=== PATIENT | male | born 1985 | race Caucasian/White ===

== ENCOUNTER 2023-11-25 20:01 | Emergency (ER) | payer SELFPAY ==
[2023-11-25 20:03] VITALS: BP 162/92
--- NOTE | 2023-11-25 21:01 | ED.GENMED ---
History of Present Illness
General
Chief Complaint: Abdominal Pain
Source: patient
Exam Limitations: none
Time Seen by Provider: 11/25/23 20:30
Nursing documentation reviewed up to this point in time: agreed with
Travel History
Have you had any contact with someone who has COVID-19?: No
Do you have any symptoms of coronavirus? Fever > 100 degrees, chills, cough, shortness of breath, sore throat, loss of taste or smell, muscle aches, or headache?: No
History of Present Illness
History of Present Illness:
This a pleasant 37-year-old male that presents with left-sided back pain that wraps around to his abdomen. He states that it occurred late last night/early this morning. He states that he awakened in the middle of the night and cooked himself a
'greasy cheese steak '. He states that he has been having pain that radiates from his back around to the front on the left side of his abdomen. He denies fever or chills. He states that he felt better after he 'forced himself to vomit '. He
states that he still has the pain that is intermittent in nature. He denies any urinary symptoms. Reports no fever or chills. Denies chest pain or shortness of breath. At time of exam, patient was symptom-free.
Review of Systems
Review of Systems
Allergies reviewed?: Yes
All Other Systems: ROS reviewed and negative except as documented in HPI and ROS
Constitutional: Reports sleep disturbance
EENT: Reports no symptoms
Respiratory: Reports no symptoms
Cardiac: Reports no symptoms
ABD/GI: Reports abdominal pain and vomiting; Denies nausea, diarrhea, constipated or bloody stools
: Reports no symptoms
Musculoskeletal: Reports no symptoms
Skin: Reports no symptoms
Neurological: Reports no symptoms
Endocrine: Reports no symptoms
Hematologic/Lymphatic: Reports no symptoms
Psychiatric: Reports anxiety
Phy Exam
General Physical Exam
General Presentation: well appearing and no apparent distress
General Skin: warm and dry
General Habitus: normal
General Mental: alert
General Hydration: appears well hydrated
ENT Exam
ENT Exam: EOMI, pharynx normal, neck supple and normocephalic
Eye Exam
Eye Exam: PERRL, cornea clear and conjunctiva normal
Cardiovascular Exam
Cardiovascular Exam: regular rate/rhythm, no edema, no murmur and normal peripheral pulses
Pulmonary Exam
Pulmonary Exam: lungs clear, no respiratory distress, no rales, no crackles, no rhonchi, no stridor, no wheezing and no cough
Gastrointestinal Exam
Gastrointestinal Exam: normal bowel sounds, non tender, soft, no organomegaly, no pulsatile mass and non distended
Neurological Exam
Neurological Exam: alert, oriented x3, no motor deficits and speech normal
Musculoskeletal Exam
Musculoskeletal Exam: full ROM and no edema
Skin Exam
Skin Exam: normal color, warm/dry, no rash and no petechia
Psychiatric Exam
Psychiatric Exam: normal mood/affect
Course
Orders/Labs/Results
Orders:
Orders
11/25/23 20:43
0.9% Sodium Chloride 1000 ml [Nss] 1,000 ml IV BOLUS
11/25/23 21:21
Complete Blood Count/With Diff Urgent
Comprehensive Metabolic Panel Urgent
Lipase Urgent
11/25/23 21:31
CT Abd/pel Without Iv Or Oral Urgent
Comment:
Reason For Exam: l flank pain
11/25/23 23:06
Urinalysis Reflex To Culture Urgent
Date Specimen was Collected: 11/25/23
Time Specimen was Collected: 22:38
Abnormal Lab Results
11/25/23
21:21
MCH 31.4 H pg
(27.0-31.0)
Glucose 133 H mg/dl
(70-99)
11/25/23 21:21
11/25/23 21:21
Vital Signs
Initial and Last Documented VS:
Initial Vital Signs
Temp Pulse Resp BP Pulse Ox
98.3 F 80 16 162/92 98
11/25/23 20:03 11/25/23 20:03 11/25/23 20:03 11/25/23 20:03 11/25/23 20:03
Last Documented Vital Signs
Temp Pulse Resp BP Pulse Ox
98.3 F 74 16 134/70 98
11/25/23 20:03 11/26/23 00:12 11/26/23 00:12 11/26/23 00:12 11/26/23 00:12
MDM/Problems Addressed
Differential Diagnosis Includes:
Abdominal pain, kidney stone, flank pain, musculoskeletal abdominal pain, pancreatitis
MDM/Problems Addressed:
37-year-old male with left-sided abdominal pain after eating a cheese steak
Chronic conditions affecting care:
None, this is an acute problem
*Radiology
Radiology exam reviewed: radiology read reviewed
*Pulse Oximetry
Patient hypoxic: no
*Critical Care Note
Total Time (30-74mins, 75-104mins- exclusive of procedures): Not Applicable
Data Reviewed
Review of Other/Old Records Reveals: Labs
Source: patient
Update Note
Update Note:
CT A/P W/O IV CONTRAST
IMPRESSION:
Decreased sensitivity in the evaluation of the abdominal viscera due to lack of IV contrast.
No definite CT findings to account for the reported pain/symptoms.
No evidence of hydroureteronephrosis or obstructing stone. No signficant perinephric fat stranding.
Unremarkable CT appearance of the gallbladder, biliary tract, and pancreas.
No appendicitis or colitis.
No evidence of small bowel obstruction.
No free fluid or free air.
No AAA.
Case finalized at 1054pm ET.
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 He will follow-up with dermatology.
ED Attending Note
-
Portions of this chart may have been created with voice recognition software.� Occasional wrong word or��sound alike� substitutions may have occurred due to the inherent limitations of voice recognition software.
Discharge Plan
Departure
Patient Disposition: Home (Routine Discharge)
Date of Disposition: 11/26/23
Time of Disposition: 00:37
Patient with high blood pressure during this ER visit?: Yes
Condition: Good
Discharge Problem:
Abdominal pain
Instructions: Abdominal Pain, BLOOD PRESSURE
Referrals:
NONE,* [Family Provider] -
Interventions
Interventions:
*Risk Screen - Suicide Last Done: 11/25/23 20:03
*General Assessment Last Done: 11/25/23 20:03
*Neglect/Abuse Screening Last Done: 11/25/23 20:03
*ED COVID-19 Vaccine History Last Done: 11/25/23 20:03
[facility]-Ovololispw Assessment Last Done: 11/25/23 21:06
Discharge Date and Time
Print Language: HEBREW
[2023-11-25 21:06] VITALS: BMI 35.5
[2023-11-25] MEDS: NSS 1000 IV (21:21)
[2023-11-25 21:27] LABS: % Basophils 1.3 % (0-2); % Eosinophils 5.4 % (0-6); % Immature Granulocytes 0.2 % (0-0.5); % Lymphocytes 42.4 % (20.5-51.1); % Monocytes 7.4 % (1.7-9.3); % Neutrophils 43.3 % (42.2-75.2); Absolute Basophils 0.1 10^3/uL (0-0.2); Absolute Eosinophils 0.3 10^3/uL (0-0.7); Absolute Lymphocytes 2.3 10^3/uL (1.2-3.4); Absolute Monocytes 0.4 10^3/uL (0.1-0.6); Absolute Neutrophils 2.3 10^3/uL (1.4-6.5); Hematocrit 40.7 % (39.0-52.0); Hemoglobin 14.8 g/dL (13.0-18.0); Mean Corp Hgb Conc. 36.4 g/dL (33.0-37.0); Mean Corpuscular Hgb 31.4 pg (27.0-31.0); Mean Corpuscular Volume 86.4 fL (80.0-94.0); Mean Platelet Volume 9.6 fL (7.4-10.4); Nucleated Red Blood Cells % 0 % (-); Platelet Count 228 10^3/uL (130-400); Red Blood Cell Count 4.71 10^6/uL (4.70-6.10); Red Cell Dist. Width 12.1 % (11.5-14.5); White Blood Cell Count 5.4 10^3/uL (4.8-10.8)
[2023-11-25 21:42] LABS: ALT (SGPT) 43 U/L (0-50); AST (SGOT) 38 U/L (17-59); Albumin 4.3 g/dl (3.5-5.0); Alkaline Phosphatase 59 U/L (38-126); Blood Urea Nitrogen 11 mg/dl (9-20); Calcium 9.6 mg/dl (8.4-10.2); Carbon Dioxide 27 mmol/L (22-30); Chloride 104 mmol/L (98-107); Estimated Creatinine Clearance > 125 ml/min; Glucose 133 mg/dl (70-99); Lipase 250 U/L (23-300); Potassium 3.7 mmol/L (3.5-5.1); Sodium 137 mmol/L (135-145); Total Bilirubin 0.5 mg/dl (0.2-1.3); Total Protein 6.9 g/dl (6.3-8.2); eGFR > 60.00
[2023-11-25 23:31] LABS: Urine Albumin Negative (Neg - Trace); Urine Bilirubin Negative (Negative); Urine Character Clear (Clear); Urine Color Yellow; Urine Glucose Negative (Negative); Urine Ketone Negative (Negative); Urine Leukocyte Negative (Negative); Urine Nitrite Negative (Negative); Urine Occult Blood Negative (Negative); Urine Specific Gravity 1.015 (<1.030); Urine Urobilinogen Negative (Neg - 1+)
[2023-11-26 00:12] VITALS: BP 134/70
== END 2023-11-26 00:47 | disposition home or self-care (01) ==
LOC: EMR 20:01
PROVIDERS: EMERGENCY PHYSICIAN Student in an Organized Health Care Education/Training Program
DX: R10.9 Unspecified abdominal pain (principal); R03.0 Elevated blood-pressure reading, without diagnosis of hypertension
CPT/HCPCS: 99284; 96360; 74176; 80053; 81003; 83690; 85025